=== PATIENT | female | born 1970 | race Caucasian/White ===

== ENCOUNTER 2018-07-02 16:26 | Outpatient (REF) | payer MEDICAID, SELFPAY ==
[2018-07-02 20:38] LABS: Abs Immature Grans 0.01 k/cumm (0.0-0.09); Absolute Basophil Count 0.02 k/cumm (0.0-0.2); Absolute Eosinophil Count 0.01 k/cumm (0.0-0.7); Absolute Lymphocyte Count 0.77 k/cumm (1.2-3.4); Absolute Monocyte Count 0.56 k/cumm (0.11-0.7); Absolute Neutrophil Count 5.48 k/cumm (1.2-6.7); Basophils % 0.3; Eosinophils % 0.1; HCT 46.2 % (36.0-46.0); HGB 15.5 g/dL (12.0-15.5); Immature Grans % 0.1; Lymphocytes % 11.2; Mean Corp. HGB Concentration 33.5 g/dL (32.0-36.0); Mean Corpuscular Hemoglobin 31.8 pg (27.0-33.0); Mean Corpuscular Volume 94.9 fL (80-95); Mean Platelet Volume 10.9 fL (8.0-11.0); Monocytes % 8.2; Neutrophils % 80.1; Platelet Count 192 x1000/uL (130-400); RBC 4.87 m/cumm (4.00-5.20); RBC Distribution Width 11.9 % (11.7-14.6); White Blood Cell Count 6.85 k/cumm (4.4-10.8)
[2018-07-02 20:43] LABS: ALT 26 U/L (12-78); AST 22 U/L (15-37); Albumin 3.7 g/dL (3.4-5.0); Alkaline Phosphatase 53 U/L (46-116); Anion Gap 10.7 mmol/L (3-11); BUN 13 mg/dL (7-18); Bilirubin, Total 0.3 mg/dL (0.2-1.0); CO2 26.3 mmol/L (21.0-32.0); CREATININE 0.71 mg/dL (0.55-1.02); Calcium 8.6 mg/dL (8.5-10.1); Chloride 102 mmol/L (98-107); Glucose 102 mg/dL (70-100); Potassium 3.9 mmol/L (3.5-5.1); Sodium 139 mmol/L (136-145); Total Protein 6.8 g/dL (6.4-8.2)
[2018-07-02 21:21] LABS: ESR 27 MM/HR (0-20)
[2018-07-03 17:41] LABS: CRP, High Sensitivity >15.00 mg/L
== END 2018-07-02 16:46 ==
LOC: NCHCN 16:26
PROVIDERS: PCP Family Medicine; Visit Provider Specialist/Technologist Athletic Trainer
DX: L93.0 Discoid lupus erythematosus (principal)
CPT/HCPCS: 80053; 85652; 86141; 85025; 87086

== ENCOUNTER 2018-12-25 15:57 | Outpatient (REF) | payer MEDICAID, SELFPAY ==
--- NOTE | 2018-12-25 15:00 | PAPFT_PTH ---
PATIENT: Francy Cornejo LOC: [facility] U#:[id number] AGE/SX: 48/F ROOM: RE12/25/[address]: MINNIE Wolfe : 1970 BED: DIS: 12/25/2018 SPEC #: [id number] RECD: 12/25/18 18:02 STATUS: MALLORIE DEL TORO #: [id number] KENYON: 12/25/18 15:[address]: Yuly Davis DEPT: [facility] Cytology RECD BY: Kim Baiers ENTERED: 12/25/18 18:02 SP TYPE: PAPFT OTHR DR: Belgica Gautam V Tissues: 1 - CX/ENDOCX FOR PAP SMEARS Procedures: PAP THIN PREP/UVM Screening HPV DNA PROBE Comments: [id number]
== END 2018-12-25 16:17 ==
LOC: LBN 15:57
PROVIDERS: PCP Family Medicine; Visit Provider Nurse Practitioner Family
DX: Z12.4 Encounter for screening for malignant neoplasm of cervix (principal); Z11.51 Encounter for screening for human papillomavirus (HPV)
CPT/HCPCS: 88142; 87624

== ENCOUNTER 2018-12-26 03:42 | Outpatient (CLI) | payer MEDICAID, SELFPAY ==
--- NOTE | 2018-12-26 09:04 | DI.MAMMO_ITS ---
SYMPTOMS/DIAGNOSIS: SCREENING, Z12.31 MAMMOGRAMS: Mammograms were interpreted according to the usual protocol including computer analysis with CAD system, tomosynthesis and C view imaging. The breast tissue is heterogeneously radiodense, which lowers the sensitivity of the study. When compared with previous images, again noted are the rounded densities in the upper outer quadrant of the left breast with note made of some decrease in size of the more laterally positioned mass. The patient had a previous ultrasound examination, which revealed cysts in the upper outer quadrant of the breast. There are no suspicious calcifications and there is nothing specific to suggest a malignancy. SUMMARY: Left breast masses consistent with cysts, which were previously demonstrated at ultrasound. Category 2. Follow-up surveillance with annual screening mammography is recommended. Breast density category C. MQSA ASSESSMENT OF FINDINGS: Negative with benign findings. Category 2. Patient will receive a letter notifying them of these results. Bi-RADS category C. The breasts are heterogeneously dense, which may obscure small masses.
== END 2018-12-26 04:02 ==
PROVIDERS: PCP Family Medicine; Visit Provider Nurse Practitioner Family
DX: Z12.31 Encounter for screening mammogram for malignant neoplasm of breast (principal); N60.12 Diffuse cystic mastopathy of left breast
CPT/HCPCS: 77063; 77067

== ENCOUNTER 2019-06-19 15:08 | Outpatient (REF) | payer MEDICAID, SELFPAY ==
[2019-06-20 17:35] LABS: Estradiol 37 pg/ml
[2019-06-21 10:36] LABS: FSH 20.4 mIU/ml
== END 2019-06-19 15:28 ==
LOC: NCHCN 15:08
PROVIDERS: PCP Family Medicine; Visit Provider Physician Assistant Medical
DX: N95.1 Menopausal and female climacteric states (principal)
CPT/HCPCS: 82670; 83001; 83002

== ENCOUNTER 2019-09-30 16:25 | Outpatient (REF) | payer MEDICAID, SELFPAY ==
[2019-10-02 15:19] LABS: Chlamydia Result Negative (Negative); GC Result Negative (Negative)
== END 2019-09-30 16:45 ==
LOC: NCHCO 16:25
PROVIDERS: PCP Family Medicine; Visit Provider Nurse Practitioner Women's Health
DX: Z11.3 Encounter for screening for infections with a predominantly sexual mode of transmission (principal)
CPT/HCPCS: 87491; 87591

== ENCOUNTER 2020-06-22 18:34 | Outpatient (REF) | payer MEDICAID, SELFPAY ==
[2020-06-26 07:03] LABS: Patient Race White; SARS-CoV-2 RNA Undetected (Undetected); SARS-CoV-2 Specimen Source Nasal
== END 2020-06-22 18:54 ==
LOC: NCHCN 18:34
PROVIDERS: PCP Family Medicine; Visit Provider Nurse Practitioner Family
DX: R05 Cough (principal)
CPT/HCPCS: U0003

== ENCOUNTER 2020-08-06 15:57 | Outpatient (REF) | payer MEDICAID, SELFPAY ==
[2020-08-11 14:01] LABS: Patient Race White; SARS-CoV-2 RNA Undetected (Undetected); SARS-CoV-2 Specimen Source Nasal
== END 2020-08-06 16:17 ==
LOC: NCHCN 15:57
PROVIDERS: PCP Family Medicine; Visit Provider Physician Assistant Medical
DX: Z20.828 Contact with and (suspected) exposure to other viral communicable diseases (principal)
CPT/HCPCS: U0003

== ENCOUNTER 2020-08-14 11:58 | Outpatient (REF) | payer MEDICAID, SELFPAY ==
[2020-08-14 20:37] LABS: Abs Immature Grans 0.01 10^3/uL (0.0-0.06); Absolute Basophil Count 0.02 10^3/uL (0.0-0.2); Absolute Eosinophil Count 0.04 10^3/uL (0.0-0.7); Absolute Lymphocyte Count 1.85 10^3/uL (1.2-3.4); Absolute Monocyte Count 0.34 10^3/uL (0.1-0.8); Absolute Neutrophil Count 2.85 10^3/uL (1.2-6.7); Basophils % 0.4; Eosinophils % 0.8; HCT 44.6 % (36.0-46.0); HGB 14.8 g/dL (11.2-15.7); Immature Grans % 0.2; Lymphocytes % 36.2; MCHC 33.2 % (32.0-36.0); MCV 96.3 fL (80-95); MPV 11.6 fL (8.0-11.0); Monocytes % 6.7; Neutrophils % 55.7; Nucleated RBC 0 %; Platelet Count 250 10^3/uL (130-400); RBC 4.63 10^6/uL (3.93-5.22); RDW 11.9 % (11.7-14.6); RDW-SD 42.2 fL; WBC 5.11 10^3/uL (4.4-10.8)
[2020-08-14 21:06] LABS: Anion Gap 7.3 mmol/L (3-11); BUN 17 mg/dL (7-18); CO2 28.7 mmol/L (21.0-32.0); CREATININE 0.81 mg/dL (0.55-1.02); Calcium 9.5 mg/dL (8.5-10.1); Chloride 104 mmol/L (98-107); Glucose 88 mg/dL (74-106); Potassium 4.8 mmol/L (3.5-5.1); Sodium 140 mmol/L (136-145)
== END 2020-08-14 12:18 ==
LOC: NCHCN 11:58
PROVIDERS: PCP Family Medicine; Visit Provider Physician Assistant Medical
DX: R55 Syncope and collapse (principal)
CPT/HCPCS: 80048; 85025

== ENCOUNTER 2021-03-11 10:36 | Outpatient (REF) | payer MEDICAID, SELFPAY ==
[2021-03-11 13:12] LABS: Abs Immature Grans 0.03 10^3/uL (0.0-0.06); Absolute Basophil Count 0.03 10^3/uL (0.0-0.2); Absolute Eosinophil Count 0.03 10^3/uL (0.0-0.7); Absolute Lymphocyte Count 2.01 10^3/uL (1.2-3.4); Absolute Neutrophil Count 9.98 10^3/uL (1.2-6.7); Basophils % 0.2; Eosinophils % 0.2; HCT 45.6 % (36.0-46.0); Immature Grans % 0.2; MCH 32.4 pg (27.0-33.0); MCHC 32.9 % (32.0-36.0); MCV 98.5 fL (80-95); MPV 11.3 fL (8.0-11.0); Neutrophils % 79.4; Nucleated RBC 0 %; Platelet Count 243 10^3/uL (130-400); RBC 4.63 10^6/uL (3.93-5.22); RDW-SD 43.8 fL; WBC 12.57 10^3/uL (4.4-10.8)
[2021-03-11 13:19] LABS: ALT 28 U/L (14-59); AST 20 U/L (15-37); Albumin 4.4 g/dL (3.4-5.0); Alkaline Phosphatase 46 U/L (46-116); BUN 11 mg/dL (7-18); Bilirubin, Total 0.7 mg/dL (0.2-1.0); CREATININE 0.9 mg/dL (0.55-1.02); Calcium 9.3 mg/dL (8.5-10.1); Chloride 104 mmol/L (98-107); Glucose 110 mg/dL (74-106); Potassium 4.6 mmol/L (3.5-5.1); Sodium 142 mmol/L (136-145); Total Protein 7.1 g/dL (6.4-8.2)
== END 2021-03-11 10:37 | disposition home or self-care (01) ==
LOC: LBN 10:36
PROVIDERS: PCP Family Medicine; Visit Provider Physician Assistant Medical
DX: R11.0 Nausea (principal); R30.0 Dysuria
CPT/HCPCS: 80053; 87077; 85025; 87086; 87186

== ENCOUNTER 2021-03-11 13:52 | Outpatient (CLI) | payer MEDICAID, SELFPAY ==
--- NOTE | 2021-03-11 | DI.US_ITS ---
Exam(s) US RENAL EXAM: US RENAL CLINICAL HISTORY: DYSURIA R30.0 TECHNIQUE: Ultrasound of both kidneys performed using standard protocol. COMPARISON: FINDINGS: RIGHT KIDNEY: Measures 9.7 cm in length. Was apparently not possible to visualize the entire inferior pole the rig ht kidney on today's study due to adjacent bowel, this despite multiple attempts to reposition the pa tient. However, there were no obvious focal abnormalities evident in the right kidney. No cysts yair dent. Normal cortical thickness and corticomedullary differentiation .No solid masses No intrarenal calculi nor hydronephrosis. LEFT KIDNEY: Measures 9.6 cm in length. No cysts evident. Normal cortical thickness and corticomedullary differen tiaion. No solids masses. No intrarenal calculi nor hydonephrosis. URINARY BLADDER: Prevoid volume is 291 cc Postvoid volume is 12 cc No evidence of bladder mass nor diverticuli. Ureterovesical jets: Both identified and appear symmetrical IMPRESSION: 1. No significant ultrasound findings in the kidneys. However, please note that it was apparently n ot possible to visualize the entire lower pole the right kidney on today's study due to shadowing fro m adjacent bowel loop, this despite multiple attempts at repositioning the patient 2. No obvious abnormality in the urinary bladder. DATA REPOSITORY:
== END 2021-03-11 14:12 ==
PROVIDERS: PCP Family Medicine; Visit Provider Physician Assistant Medical
DX: R30.0 Dysuria (principal)
CPT/HCPCS: 76770

== ENCOUNTER 2021-03-12 01:28 | Outpatient (CLI) | payer MEDICAID, SELFPAY ==
--- NOTE | 2021-03-12 | DI.US_ITS ---
Exam(s) US ABDOMEN EXAM: US ABDOMEN CLINICAL HISTORY: RUQ PAIN,R10.11 TECHNIQUE: Ultrasound abdomen performed using standard protocol. COMPARISON: No exams were available for comparison FINDINGS: ABDOMINAL AORTA AND IVC: Visualized portions normal caliber. PANCREAS: Normal where visualized. LIVER: Normal. Hepatopedal flow in the Portal Vein. The liver measures 15.4 cm in length. GALLBLADDER: No evidence of cholelithiasis. No evidence of wall thickening. No pericholecystic fluid identified. BILIARY SYSTEM: Common bile duct measures < 7 mm. No intrahepatic biliary ductal dilation. PETERS'S SIGN: Negative. KIDNEYS: Kidneys are symmetric in size. No evidence of renal calculi. No evidence of hydronephrosis. There is a 1.3 cm simple cyst in the inferior pole of the left kidney. No follow-up is recommended. SPLEEN: Not enlarged. ASCITES: None seen. IMPRESSION: Normal sonographic appearance of the upper abdomen. DATA REPOSITORY:
== END 2021-03-12 01:48 ==
PROVIDERS: PCP Family Medicine; Visit Provider Physician Assistant Medical
DX: R10.11 Right upper quadrant pain (principal)
CPT/HCPCS: 76700

== ENCOUNTER 2021-05-18 15:44 | Outpatient (CLI) | payer MEDICAID, SELFPAY ==
--- NOTE | 2021-05-18 | DI.RAD_ITS ---
Exam(s) XR CHEST 2V PA LATERAL EXAM: XR CHEST 2V PA LATERAL CLINICAL HISTORY: EXACERBATION OF INTERMITTENT ASTHMA J45.21 TECHNIQUE: 2D digital imaging was performed. COMPARISON: CR CHEST 2 VIEWS PA,LAT from 04/18/2016 FINDINGS: MEDIASTINUM: Normal. HEART: Normal. PULMONARY VASCULATURE: Normal. LUNGS: Clear. PLEURAL SPACE: No pleural effusion or pneumothorax. BONE:Unremarkable for age. IMPRESSION: No acute abnormality. DATA REPOSITORY: RADIATION DOSE DELIVERED:
== END 2021-05-18 16:04 ==
PROVIDERS: PCP Family Medicine; Visit Provider Nurse Practitioner Family
DX: J45.21 Mild intermittent asthma with (acute) exacerbation (principal)
CPT/HCPCS: 71046

== ENCOUNTER 2021-05-18 18:01 | Outpatient (REF) | payer MEDICAID, SELFPAY ==
[2021-05-20 17:00] LABS: COVID-19 RT-PCR UVMMC Result Negative (Negative)
== END 2021-05-18 18:02 | disposition home or self-care (01) ==
LOC: LBN 18:01
PROVIDERS: PCP Family Medicine; Visit Provider Nurse Practitioner Family
DX: Z20.822 Contact with and (suspected) exposure to COVID-19 (principal); R55 Syncope and collapse
CPT/HCPCS: U0003

== ENCOUNTER 2021-07-20 15:35 | Outpatient (REF) | payer MEDICAID, SELFPAY ==
[2021-07-22 10:34] LABS: COVID-19 RT-PCR UVMMC Result Negative (Negative)
== END 2021-07-20 15:36 | disposition home or self-care (01) ==
LOC: NCHCN 15:35
PROVIDERS: PCP Family Medicine; Visit Provider Physician Assistant Medical
DX: Z20.822 Contact with and (suspected) exposure to COVID-19 (principal); J06.9 Acute upper respiratory infection, unspecified
CPT/HCPCS: U0003

== ENCOUNTER 2021-07-27 17:03 | Outpatient (REF) | payer MEDICAID, SELFPAY ==
[2021-07-29 14:36] LABS: Chlamydia Result Negative (Negative); GC Result Negative (Negative)
== END 2021-07-27 17:04 | disposition home or self-care (01) ==
LOC: LBN 17:03
PROVIDERS: PCP Family Medicine; Visit Provider Obstetrics & Gynecology
DX: N89.8 Other specified noninflammatory disorders of vagina (principal); Z11.3 Encounter for screening for infections with a predominantly sexual mode of transmission
CPT/HCPCS: 87491; 87591; 87480; 87510; 87660

== ENCOUNTER 2021-11-25 17:22 | Outpatient (REF) | payer MEDICAID, SELFPAY ==
[2021-11-25 19:54] LABS: TSH 2.64 uIU/mL (0.36-3.74)
[2021-11-25 20:31] LABS: Calculated LDL 164 mg/dL (<100); Cholesterol 268 mg/dL (<200); HDL Cholesterol 90 mg/dL (40-60); Triglyceride 72 mg/dL (<150)
== END 2021-11-25 17:23 | disposition home or self-care (01) ==
LOC: NCHCN 17:22
PROVIDERS: PCP Family Medicine; Visit Provider Nurse Practitioner Family
DX: Z00.00 Encounter for general adult medical examination without abnormal findings (principal)
CPT/HCPCS: 80061; 84443

== ENCOUNTER 2021-12-02 00:46 | Outpatient (CLI) | payer MEDICAID, SELFPAY ==
--- NOTE | 2021-12-02 08:45 | DI.NM_ITS ---
APPROVED REPORT Exam: Exercise Treadmill Patient Location: Out-Patient Room/Bed: Stress Nurse: Diana Pastor RN Ordering Provider:HANK BANGURA, Contact Number: [phone] BMI: 20.76 Baseline Rhythm: Sinus Rhythm Indications: chest pain, palpitations Medical History Medical History: Lupus, depresion, migraine, asthma Cardiac Medications: albuterol, plaquenil Allergies: humira, promethazine Cardiac Risk Factors: Family Hx, Asthma Previous Cardiac Procedures: none Pretest Chest Pain Characteristics: none Exercise History: Physically active Physical Disabilities: none Lung Sounds: Clear to auscultation Heart Sounds: Regular Stress Test Details Test: Exercise stress testing was performed using a Kevin protocol. Nuclear Acquisition: Rest Tc-99m/Stress Tc-99m 1 day Rest Isotope: Tc-99m Sestamibi. Dose: 10.2 Date: 12/02/2021 Injection Time: 0900 Stress Isotope: Tc-99m Sestamibi. Dose: 31 Date: 12/02/2021 Injection Time: 1037 HR Resting HR Supine: 69 bpm Max Heart Rate (APMHR): 168.941370 bpm Resting HR Standin bpm Target HR (85% APMHR): 142.812280 bpm Max HR Achieved: 162 bpm % of APMHR: 96.43 Recovery HR: 93 bpm HR response to stress: Normal HR response to stress BP Resting BP Supine: 114/80 mmHg Resting BP Standin/80 mmHg Max BP: 130/80 mmHg Recovery BP: 118/76 mmHg BP response to stress: Normal blood pressure response to stress. ECG Resting ECG: Sinus Rhythm Ectopy: none Stress ECG: Sinus Tachycardia ST Change: Upsloping ST depression Lead(s): II Stage: [address] Deviation: 0.5 mm Arrhythmia: None Comment: minimal upsloping ST depression noted at exercise 7:59 and 8:59 Recovery ECG: Sinus Rhythm Recovery ST Change: No significant ST segment changes noted Recovery Arrhythmia: None Clinical Reason for Termination: Fatigue Stress Symptoms: none Exercise duration: 11 min43 sec Highest Stage Reached: Stage 4: 4.2 mph at 16% grade. Exercise capacity: 13.48 METs Functional Capacity: Above average capacity Quesada Treadmill Score: 9.3 Rate Pressure Product: 25125 Stress ECG Conclusion 1. Resting electrocardiogram was within normal limits 2. Patient exercised on Kevin protocol and completed a workload of 13.48 METS 3. Normal heart rate and blood pressure response to exercise. The patient achieved 96% of predicted heart rate for age 4. There was no electrocardiographic evidence of myocardial ischemia 5. There were no dysrhythmias 6. See MPI report Quesada Treadmill Score is 9.3 which is Low risk. Stress Test Summary STAGE Time (mins) Speed (mph) Grade (%) HR BP SYMPTOMS METS Supine 69 114/80 Standing 81 112/80 1 3 1.7 10 99 124/78 4.6 2 6 2.5 12 117 122/78 7 3 9 3.4 14 129 128/76 10.2 1 min recovery 110 130/80 3 min recovery 100 128/82 6 min recovery 93 118/76 MPI Conclusion Normal myocardial perfusion without evidence of ischemia or prior infarction EF 65%, wall motion is normal Radiologist Interpretation Radiologist agrees with Reporting Specialist's Interpretation. Radiologist Interpretation by: Amy Lujan MD Interpretation Date/Time: 12/07/2021 16:20:25
== END 2021-12-02 01:06 ==
PROVIDERS: PCP Family Medicine; Visit Provider Nurse Practitioner Family
DX: R07.89 Other chest pain (principal); R00.2 Palpitations
CPT/HCPCS: 78452; 93017

== ENCOUNTER → 2022-04-25 01:49 | Outpatient (CLI) | payer MEDICAID, SELFPAY ==
--- NOTE | 2022-04-25 07:21 | DI.MRI_ITS ---
Exam(s) MR PELVIS WO/W EXAM: MR PELVIS WO/W CLINICAL HISTORY: pelvic mass,r19.00. TECHNIQUE: Multiplanar multisequence MRI was performed. COMPARISON: US US TRANSVAGINAL NON OB from 04/22/2022 FINDINGS: MR examination of the pelvis was performed utilizing multiplanar imaging pre and post contrast admini stration. No significant bony signal abnormality of the pelvis. No pelvic or inguinal adenopathy. Urinary diomedes dder appears intact. Portions of the pelvis are partially obscured due to artifact on some pulse sequences including pre c ontrast T2 weighted axial images. Patient has reportedly had hysterectomy and this appears to be a partial hysterectomy. Both ovaries are visualized, left ovary measures about 28 x 18 by 20 millimeters in diameter with a 19 millimeter in diameter simple cyst. Right ovary measures about 21 x 17 x 20 millimeters in diameter overall wit h an 8 millimeter simple cyst. No enhancing lesion seen involving the ovaries. No free fluid in the pelvis. No Fallopian tube dilatation. IMPRESSION: Unremarkable pelvic MRI status post partial hysterectomy. No suspicious ovarian mass. DATA REPOSITORY:
[2022-04-25] MEDS: Normal Saline Flush 10 ML SYR IVP (11:54)
== END ==
PROVIDERS: PCP Family Medicine; Visit Provider Obstetrics & Gynecology
DX: R19.00 Intra-abdominal and pelvic swelling, mass and lump, unspecified site (principal)
CPT/HCPCS: 72197

== ENCOUNTER 2023-05-12 17:08 | Outpatient (CLI) | payer MEDICAID, SELFPAY ==
[2023-05-12 14:57] LABS: Abs Immature Grans 0.02 10^3/uL (0.0-0.06); Absolute Basophil Count 0.03 10^3/uL (0.0-0.2); Absolute Eosinophil Count 0.09 10^3/uL (0.0-0.7); Absolute Lymphocyte Count 2.53 10^3/uL (1.2-3.4); Absolute Monocyte Count 0.44 10^3/uL (0.1-0.8); Basophils % 0.4; Eosinophils % 1.2; HCT 42.8 % (36.0-46.0); HGB 14.4 g/dL (11.2-15.7); Immature Grans % 0.3; Lymphocytes % 32.8; MCH 31.6 pg (27.0-33.0); MCHC 33.6 % (32.0-36.0); MCV 94 fL (80-95); MPV 9.8 fL (8.0-11.0); Monocytes % 5.7; Neutrophils % 59.6; Platelet Count 233 10^3/uL (130-400); RBC 4.56 10^6/uL (3.93-5.22); RDW-SD 41.7 fL; WBC 7.71 10^3/uL (4.4-10.8)
[2023-05-12 16:27] LABS: ALT 30 U/L (14-59); AST 19 U/L (15-37); Albumin 4.1 g/dL (3.4-5.0); Alkaline Phosphatase 45 U/L (46-116); Anion Gap 6.5 mmol/L (3-11); BUN 20 mg/dL (7-18); Bilirubin, Total 0.2 mg/dL (0.2-1.0); CO2 31.5 mmol/L (21.0-32.0); CREATININE 1.2 mg/dL (0.55-1.02); Calcium 9.4 mg/dL (8.5-10.1); Chloride 106 mmol/L (98-107); Creatine Kinase 98 U/L (26-192); Estimated GFR 54.13 (mL/min/1.73m2); Glucose 90 mg/dL (74-106); Magnesium 2.5 mg/dL (1.8-2.4); Potassium 4.2 mmol/L (3.5-5.1); Sodium 144 mmol/L (136-145); Total Protein 7.3 g/dL (6.4-8.2)
[2023-05-15 11:44] LABS: Lyme Ab w Rflx to Lyme Confirm Negative (Negative)
[2023-05-15 20:34] LABS: Anaplasma phagocytophilum Negative (Negative); B. miyamotoi PCR Negative (Negative); Babesia divergens/MO-1 Negative (Negative); Babesia duncani Negative (Negative); Babesia microti Negative (Negative); Ehrlichia chaffeensis Negative (Negative); Ehrlichia ewingii/canis Negative (Negative); Ehrlichia muris eauclairensis Negative (Negative)
== END 2023-05-12 17:09 | disposition home or self-care (01) ==
LOC: LBO 17:08
PROVIDERS: PCP Family Medicine; Visit Provider Physician Assistant Medical
DX: R42 Dizziness and giddiness (principal); R51.9 Headache, unspecified
CPT/HCPCS: 36415; 80053; 82550; 87798; 83735; 85025; 86618

== ENCOUNTER 2023-05-16 12:31 | Outpatient (REF) | payer MEDICAID, SELFPAY | END 2023-05-16 12:32 | disposition home or self-care (01) | LOC: NCHCN 12:31 | PROVIDERS: PCP Family Medicine; Visit Provider Physician Assistant Medical | DX: R82.79 Other abnormal findings on microbiological examination of urine (principal); R94.4 Abnormal results of kidney function studies | CPT/HCPCS: 87086 ==

== ENCOUNTER 2023-05-17 15:39 | Outpatient (CLI) | payer MEDICAID, SELFPAY ==
[2023-05-17 15:42] LABS: Abs Immature Grans 0.03 10^3/uL (0.0-0.06); Absolute Basophil Count 0.03 10^3/uL (0.0-0.2); Absolute Eosinophil Count 0.03 10^3/uL (0.0-0.7); Absolute Lymphocyte Count 3.06 10^3/uL (1.2-3.4); Absolute Monocyte Count 0.41 10^3/uL (0.1-0.8); Absolute Neutrophil Count 5.35 10^3/uL (1.2-6.7); Basophils % 0.3; Eosinophils % 0.3; HGB 14.8 g/dL (11.2-15.7); Immature Grans % 0.3; Lymphocytes % 34.3; MCHC 32.9 % (32.0-36.0); MCV 94 fL (80-95); MPV 9.7 fL (8.0-11.0); Monocytes % 4.6; Neutrophils % 60.2; Platelet Count 287 10^3/uL (130-400); RBC 4.78 10^6/uL (3.93-5.22); RDW 11.9 % (11.7-14.6); RDW-SD 41.3 fL; WBC 8.91 10^3/uL (4.4-10.8)
[2023-05-17 15:44] LABS: Bilirubin Negative (Negative); Blood Trace-lysed (Negative); Clarity Clear (Clear); Glucose Negative (Negative); Ketones Negative (Negative); Leukocyte Esterase Negative (Negative); Nitrite Negative (Negative); Specific Gravity <= 1.005 (1.005-1.025); Urobilinogen 0.2 mg/dL (Up to 0.2); pH 5.5 (5-8)
[2023-05-17 15:46] LABS: ESR 2 mm/hr (0-30)
[2023-05-17 16:00] LABS: Bacteria Negative HPF (Negative); C & S Indicated? No; Casts Negative LPF (Negative); Crystals Negative HPF (Negative); Epithelial Cells Rare HPF (Negative); Mucus Negative (Negative); RBC 0-2 HPF (0-2); WBC Negative HPF (0-5)
[2023-05-17 16:21] LABS: ALT 28 U/L (14-59); AST 16 U/L (15-37); Albumin 4.6 g/dL (3.4-5.0); Alkaline Phosphatase 53 U/L (46-116); Anion Gap 8.9 mmol/L (3-11); BUN 16 mg/dL (7-18); Bilirubin, Total 0.4 mg/dL (0.2-1.0); CO2 29.1 mmol/L (21.0-32.0); CREATININE 0.9 mg/dL (0.55-1.02); Calcium 9.4 mg/dL (8.5-10.1); Chloride 102 mmol/L (98-107); Estimated GFR 76.44 (mL/min/1.73m2); Glucose 91 mg/dL (74-106); Potassium 3.3 mmol/L (3.5-5.1); Sodium 140 mmol/L (136-145)
[2023-05-17 16:43] LABS: C-Reactive Protein < 0.05 mg/dL (0.0-0.3)
[2023-05-18 09:08] LABS: C3 Complement 142 mg/dL (81-157); C4 Complement 26 mg/dL (13-39)
[2023-05-19 13:55] LABS: dsDNA Ab, IgG <12.3 IU/mL (<30.0)
== END 2023-05-17 15:40 | disposition home or self-care (01) ==
LOC: LBO 15:42
PROVIDERS: PCP Family Medicine; Visit Provider Physician Assistant
DX: Z51.81 Encounter for therapeutic drug level monitoring (principal)
CPT/HCPCS: 36415; 80053; 85652; 81003; 81015; 85025; 86140; 86160; 86225

== ENCOUNTER → 2023-05-25 00:49 | Outpatient (CLI) | payer MEDICAID, SELFPAY ==
--- NOTE | 2023-05-25 | DI.US_ITS ---
Exam(s) US RENAL EXAM: US RENAL CLINICAL HISTORY: ELEVATED CREATININE, R79.89, RT FLANK PAIN, R10.9. TECHNIQUE: Lovelace scale, color and spectral Doppler were used. COMPARISON: US US RENAL from 03/11/2021 FINDINGS: Renal size in cm: Right: 9.4. Left: 10.0. The left kidney was not well visualized in the transverse due to overlying bowel gas. Echogenicity: Normal. Hydronephrosis: No. Cyst or mass: There is a 1.6 x 1.6 x 1.6 cm parapelvic cyst. It is simple. No follow-up is recommen ded. Nephrolithiasis: No. Other findings: None. Bladder:Normal. Ureteral jets: Right: Visualized and unremarkable. Left: Visualized and unremarkable. Prevoid vol:601 cc Postvoid vol:28 cc Renal color flow: Symmetric and within normal limits. IMPRESSION: No evidence of hydronephrosis or nephrolithiasis. DATA REPOSITORY:
== END ==
PROVIDERS: PCP Family Medicine; Visit Provider Physician Assistant Medical
DX: R79.89 Other specified abnormal findings of blood chemistry (principal); R10.9 Unspecified abdominal pain
CPT/HCPCS: 76770

== ENCOUNTER 2023-05-25 09:40 | Outpatient (RCR) | payer MEDICAID, SELFPAY ==
--- NOTE | 2023-05-25 09:45 | HOLTER_ITS ---
APPROVED REPORT Conclusion This is a 24-hour Holter monitor Rhythm throughout is sinus with an average heart rate of 74. Minimum was 52, maximum 141 There were no ventricular dysrhythmias There were 2 isolated premature atrial contractions There was no atrial fibrillation, no SVT, no high-grade AV block, no pauses greater than 3 seconds No patient symptoms were reported
== END 2023-05-25 23:59 | disposition home or self-care (01) ==
LOC: CARDOPNVT 09:40
PROVIDERS: PCP Family Medicine; Visit Provider Physician Assistant Medical
DX: R42 Dizziness and giddiness (principal)
CPT/HCPCS: 93225

== ENCOUNTER 2023-05-25 13:19 | Outpatient (CLI) | payer MEDICAID, SELFPAY ==
[2023-05-25 12:01] LABS: Anion Gap 6.7 mmol/L (3-11); BUN 10 mg/dL (7-18); CO2 30.3 mmol/L (21.0-32.0); CREATININE 0.8 mg/dL (0.55-1.02); Calcium 8.8 mg/dL (8.5-10.1); Chloride 104 mmol/L (98-107); Estimated GFR 88.05 (mL/min/1.73m2); Glucose 85 mg/dL (74-106); Potassium 3.5 mmol/L (3.5-5.1); Sodium 141 mmol/L (136-145)
== END 2023-05-25 13:20 | disposition home or self-care (01) ==
LOC: LBO 13:20
PROVIDERS: PCP Family Medicine; Visit Provider Physician Assistant Medical
DX: R79.89 Other specified abnormal findings of blood chemistry (principal); E87.6 Hypokalemia
CPT/HCPCS: 36415; 80048

== ENCOUNTER 2023-06-06 10:38 | Outpatient (RCR) | payer MEDICAID, SELFPAY | END 2023-06-24 23:59 | disposition home or self-care (01) | LOC: CARDOPNVT 10:38 | PROVIDERS: PCP Family Medicine; Visit Provider Physician Assistant Medical | DX: R42 Dizziness and giddiness (principal) | CPT/HCPCS: 93226 ==

== ENCOUNTER 2023-07-06 17:46 | Outpatient (CLI) | payer MEDICAID, SELFPAY ==
[2023-07-06 16:38] LABS: Anion Gap 8.3 mmol/L (3-11); BUN 11 mg/dL (7-18); CO2 27.7 mmol/L (21.0-32.0); CREATININE 0.8 mg/dL (0.55-1.02); Calcium 9.2 mg/dL (8.5-10.1); Chloride 104 mmol/L (98-107); Estimated GFR 88.05 (mL/min/1.73m2); Glucose 126 mg/dL (74-106); Potassium 3.4 mmol/L (3.5-5.1); Sodium 140 mmol/L (136-145); TSH 2.54 uIU/mL (0.36-3.74)
== END 2023-07-06 17:47 | disposition home or self-care (01) ==
LOC: LBO 17:46
PROVIDERS: PCP Family Medicine; Visit Provider Physician Assistant Medical
DX: R79.89 Other specified abnormal findings of blood chemistry (principal); E87.6 Hypokalemia; Z00.00 Encounter for general adult medical examination without abnormal findings
CPT/HCPCS: 36415; 80048; 84443

== ENCOUNTER 2024-01-31 17:47 | Outpatient (CLI) | payer MEDICAID, SELFPAY ==
[2024-01-31 16:57] LABS: Abs Immature Grans 0.02 10^3/uL (0.0-0.06); Absolute Basophil Count 0.04 10^3/uL (0.0-0.2); Absolute Eosinophil Count 0.13 10^3/uL (0.0-0.7); Absolute Lymphocyte Count 3.16 10^3/uL (1.2-3.4); Absolute Monocyte Count 0.49 10^3/uL (0.1-0.8); Absolute Neutrophil Count 3.48 10^3/uL (1.2-6.7); Basophils % 0.5 %; Eosinophils % 1.8 %; HCT 45.8 % (36.0-46.0); HGB 15.5 g/dL (11.2-15.7); Immature Grans % 0.3 %; Lymphocytes % 43.2 %; MCH 31.9 pg (27.0-33.0); MCHC 33.8 % (32.0-36.0); MCV 94 fL (80-95); MPV 10.1 fL (8.0-11.0); Monocytes % 6.7 %; Neutrophils % 47.5 %; Platelet Count 258 10^3/uL (130-400); RBC 4.86 10^6/uL (3.93-5.22); RDW 11.6 % (11.7-14.6); RDW-SD 39.9 fL; WBC 7.32 10^3/uL (4.4-10.8)
[2024-01-31 16:58] LABS: ESR 2 mm/hr (0-30)
[2024-01-31 18:01] LABS: ALT 30 U/L (14-59); AST 21 U/L (15-37); Albumin 4.4 g/dL (3.4-5.0); Alkaline Phosphatase 59 U/L (46-116); Anion Gap 10.4 mmol/L (3-11); BUN 15 mg/dL (7-18); Bilirubin, Total 0.2 mg/dL (0.2-1.0); C-Reactive Protein < 0.50 mg/dL (<or=0.5); CO2 28.6 mmol/L (21.0-32.0); CREATININE 0.9 mg/dL (0.55-1.02); Calcium 9.1 mg/dL (8.5-10.1); Chloride 104 mmol/L (98-107); Estimated GFR 75.97 (mL/min/1.73m2); Glucose 99 mg/dL (74-106); Potassium 4.1 mmol/L (3.5-5.1); Sodium 143 mmol/L (136-145); Total Protein 7.4 g/dL (6.4-8.2)
== END 2024-01-31 17:48 | disposition home or self-care (01) ==
LOC: LBO 17:48
PROVIDERS: PCP Family Medicine; Visit Provider Psychiatry & Neurology Neurology
DX: R26.89 Other abnormalities of gait and mobility (principal); R53.83 Other fatigue
CPT/HCPCS: 36415; 80053; 85652; 85025; 86140

== ENCOUNTER → 2025-08-15 11:03 | Outpatient (CLI) | payer MEDICAID, SELFPAY ==
--- NOTE | 2025-08-15 | DI.CT_ITS ---
Exam(s) CT ABDOMEN PELVIS WO EXAM: CT ABDOMEN PELVIS WO CLINICAL HISTORY: N23 Unspecified renal colic, R sided abd /flank pain, ? stone, hx multiple. TECHNIQUE: Imaging Protocol: Axial computed tomography images with coronal and sagittal reformatted images were created and reviewed. Oral: no COMPARISON: US US ABDOMEN from 03/12/2021 CT,NM,TMT NM MPI REST STRESS GRP from 12/02/2021 US US RENAL from 05/25/2023 FINDINGS: Lung Bases: No acute findings. Liver: Normal density. No suspicious mass. Gallbladder and biliary tract: No radiodense calculus or biliary dilation. Pancreas: Normal density. No abnormal calcifications or inflammatory process. Spleen: Normal. Kidneys: Normal size, contour and axis. No radiodense stones. No obstructive uropathy. Cyst noted at lower pole of left kidney. No suspicious masses seen. Adrenal glands: No masses seen. Lymph nodes: Within normal limits. Vasculature: Abdominal aorta non-dilated. Soft tissues: Unremarkable. Bladder: No wall thickening. No mass or calculi. Bowel: No obstruction or bowel wall thickening. Colon is somewhat redundant shows of moderate quantity of stool. The appendix is normal. Peritoneal cavity: No ascites. No focal collection. No mesenteric inflammatory response. Reproductive organs: Unremarkable. Bones: Unremarkable for age. IMPRESSION: No acute abnormality in the abdomen or pelvis. RADIATION DOSE DELIVERED: 391.89mGy.cm Total DLP DATA REPOSITORY: All CT scans at this facility are submitted to the National Radiology Data Registry (NRDR) Dose Index Registry (DIR) with the [employer] (ACR). RADIATION OPTIMIZATION: All CT scans at this facility use at least one of these dose optimization techniques: automated exposure control; mA and/or kV adjustment per patient size (includes targeted exams where dose is matched to clinical indication); or iterative reconstruction.
== END ==
LOC: DI 11:03
PROVIDERS: PCP Family Medicine; Visit Provider Family Medicine
DX: N23 Unspecified renal colic (principal)
CPT/HCPCS: 74176

== ENCOUNTER 2025-08-15 12:23 | Outpatient (CLI) | payer MEDICAID, SELFPAY ==
[2025-08-15 13:02] LABS: Anion Gap 8.1 mmol/L (3-11); BUN 13 mg/dL (9-23); CO2 28.9 mmol/L (20.0-31.0); Calcium 9.4 mg/dL (8.3-10.6); Chloride 107 mmol/L (98-107); Glucose 86 mg/dL (74-106); Potassium 3.9 mmol/L (3.5-5.1); Sodium 144 mmol/L (136-145)
== END 2025-08-15 12:24 | disposition home or self-care (01) ==
LOC: LBO 12:24
PROVIDERS: PCP Family Medicine; Visit Provider Family Medicine
DX: N23 Unspecified renal colic (principal)
CPT/HCPCS: 36415; 80048

== ENCOUNTER 2025-08-18 17:32 | Outpatient (REF) | payer MEDICAID, SELFPAY | END 2025-08-18 17:33 | disposition home or self-care (01) | LOC: LBN 17:32 | PROVIDERS: PCP Family Medicine; Visit Provider Nurse Practitioner Family | DX: N76.0 Acute vaginitis (principal) | CPT/HCPCS: 87480; 87510; 87660 ==

== ENCOUNTER 2025-08-25 14:47 | Outpatient (REF) | payer MEDICAID, SELFPAY ==
--- NOTE | 2025-08-25 14:00 | PAPFT_PTH ---
PATIENT: Francy Cornejo LOC: [facility] U#:[id number] AGE/SX: 54/F ROOM: RE08/25/[address]: Amy Seay NP : 1970 BED: DIS: 08/25/2025 SPEC #: [id number] RECD: 08/25/25 18:17 STATUS: MALLORIE DEL TORO #: [id number] KENYON: 08/25/25 14:[address]: Amy Seay NP DEPT: [facility] Cytology RECD BY: Kim Baires ENTERED: 08/25/25 18:17 SP TYPE: PAPFT OTHR DR: Belgica Gautam V Tissues: 1 - CX/ENDOCX FOR PAP SMEARS Procedures: PAP THIN PREP/[facility]VM Screening HPV DNA PROBE Comments: [id number] (HPV 16 & 18/45) (CHLAMYDIA/GC)
[2025-08-26 11:16] LABS: Chlamydia Result Negative (Negative); GC Result Negative (Negative)
== END 2025-08-25 14:48 | disposition home or self-care (01) ==
LOC: LBN 14:47
PROVIDERS: PCP Family Medicine; Visit Provider Nurse Practitioner Women's Health
DX: N76.0 Acute vaginitis (principal); Z12.4 Encounter for screening for malignant neoplasm of cervix
CPT/HCPCS: 87491; 87591; 88142; 87480; 87510; 87624; 87660